=== PATIENT | female | born 1995 | race Caucasian/White ===

== ENCOUNTER 2016-04-30 00:42 | Inpatient (IN) | payer MEDICAID, OTHER ==
--- NOTE | 2016-04-30 01:07 | ED ---
General Adult HPI - General Chief complaint: Psychiatric Symptoms Stated complaint: petition Time Seen by Provider: 04/30/16 00:54 Source: patient, RN notes reviewed Mode of arrival: ambulatory Limitations: no limitations - History of Present Illness Initial comments: Patient is a pleasant 21-year-old female presenting to the emergency department following a suicidal statement. Patient states she was upset and stated that she would rather shoot herself. Patient states she was just agitated and was not actually suicidal. Patient still denies being suicidal at this time. Patient does admit to being somewhat depressed recently no history of self-harm previously. No physical complaints. No alcohol or drug use. No hallucinations. No homicidal thoughts. - Related Data Home Medications Medication Instructions Recorded Confirmed No Known Home Medications [No 04/30/16 04/30/16 Known Home Medications] Allergies Allergy/AdvReac Type Severity Reaction Status Date / Time No Known Allergies Allergy Verified 04/30/16 03:46 Review of Systems ROS Statement: Those systems with pertinent positive or pertinent negative responses have been documented in the HPI. ROS Other: All systems not noted in ROS Statement are negative. Constitutional: Denies: fever Eyes: Denies: eye pain ENT: Denies: throat pain Respiratory: Denies: cough Cardiovascular: Denies: chest pain Endocrine: Denies: fatigue Gastrointestinal: Denies: abdominal pain Genitourinary: Denies: dysuria Musculoskeletal: Denies: back pain Skin: Denies: rash Neurological: Denies: weakness Psychiatric: Reports: depression. Denies: auditory hallucinations, visual hallucinations, homicidal thoughts, suicidal thoughts Past Medical History Past Medical History: Asthma History of Any Multi-Drug Resistant Organisms: None Reported Past Surgical History: Section Past Psychological History: No Psychological Hx Reported Smoking Status: Never smoker Past Alcohol Use History: None Reported Past Drug Use History: None Reported - Past Family History Father Family Medical History: Hypertension, Renal Disease Mother Family Medical History: Cancer Daughter(s) Family Medical History: No Reported History General Exam Limitations: no limitations General appearance: alert, in no apparent distress Head exam: Present: atraumatic Eye exam: Present: normal appearance, PERRL ENT exam: Present: normal oropharynx Neck exam: Present: normal inspection Respiratory exam: Present: normal lung sounds bilaterally Cardiovascular Exam: Present: regular rate, normal rhythm GI/Abdominal exam: Present: soft. Absent: tenderness Extremities exam: Present: normal inspection Neurological exam: Present: alert Psychiatric exam: Present: normal affect, normal mood Skin exam: Absent: rash Course Vital Signs 04/30/16 04/30/16 00:44 03:07 Temperature 99.1 F Pulse Rate 109 H 78 Respiratory 18 18 Rate Blood Pressure 131/83 127/68 O2 Sat by Pulse 98 98 Oximetry Medical Decision Making - Lab Data Result diagrams: 04/30/16 08:36 04/30/16 08:36 Lab Results 04/30/16 04/30/16 Range/Units 01:20 01:20 Urine HCG, Qual Not Detected (Not Detectd) Urine Opiates Screen Not Detected (NotDetected) Ur Oxycodone Screen Not Detected (NotDetected) Urine Methadone Screen Not Detected (NotDetected) Ur Propoxyphene Screen Not Detected (NotDetected) Ur Barbiturates Screen Not Detected (NotDetected) U Tricyclic Antidepress Not Detected (NotDetected) Ur Phencyclidine Scrn Not Detected (NotDetected) Ur Amphetamines Screen Not Detected (NotDetected) U Methamphetamines Scrn Not Detected (NotDetected) U Benzodiazepines Scrn Not Detected (NotDetected) Urine Cocaine Screen Not Detected (NotDetected) U Marijuana (THC) Screen Not Detected (NotDetected) Disposition Clinical Impression: Depression, Suicidal ideation Disposition: TRANSFER TO PSYCH HOSP/UNIT
[2016-04-30 03:43] VITALS: BP 117/72; PULSE 88; RESP 16; TEMP 98.3; BMI 41.3
[2016-04-30] MEDS ORDERED: MAGNESIUM HYDROXIDE 2,400 MG/10 ML CUP PO PRN (04:52)
[2016-04-30] MEDS ORDERED: MAG HYDROX/AL HYDROX/SIMETH 30 ML CUP PO PRN (04:52)
[2016-04-30] MEDS ORDERED: ACETAMINOPHEN TAB 325 MG TAB PO PRN (04:52)
[2016-04-30 09:35] LABS: ALT 40 U/L (9-52); AST 20 U/L (14-36); Alkaline Phosphatase 82 U/L (38-126); Anion Gap 12 mmol/L; Blood Urea Nitrogen 10 mg/dL (7-17); Calcium 10.1 mg/dL (8.4-10.2); Carbon Dioxide 26 mmol/L (22-30); Chloride 106 mmol/L (98-107); Glucose 90 mg/dL (74-99); Non-African American GFR(MDRD) >60 (>60 ml/min/1.73 sqM); Potassium 4.5 mmol/L (3.5-5.1); Sodium 144 mmol/L (137-145); Total Bilirubin 0.7 mg/dL (0.2-1.3); Total Protein 7.5 g/dL (6.3-8.2)
[2016-04-30 09:42] LABS: Basophils % (A) 0 %; CH 26.8; CHCM 32.4; Eosinophils # (A) 0.1 k/uL (0-0.7); Eosinophils % (A) 0 %; HCT 41.2 % (34.0-46.0); HDW 2.57; HGB 13.1 gm/dL (11.4-16.0); Luc % (Auto) 1; Lymphocytes # (A) 1.7 k/uL (1.0-4.8); Lymphocytes % (A) 14 %; MCH 26.4 pg (25.0-35.0); MCHC 31.7 g/dL (31.0-37.0); MCV 83.1 fL (80.0-100.0); Mean Platelet Volume 6.3; Monocytes # (A) 0.4 k/uL (0-1.0); Monocytes % (A) 3 %; Neutrophils # (A) 9.9 k/uL (1.3-7.7); Neutrophils % (A) 82 %; RBC 4.96 m/uL (3.80-5.40); RDW 13.6 % (11.5-15.5); WBC 12.1 k/uL (3.8-10.6); WBC (Perox) 12.16
[2016-04-30 13:01] LABS: Appearance,Urine Cloudy (Clear); Bacteria,Urine Rare /hpf; Bilirubin,Urine Negative (Negative); Glucose,Urine (UA) Negative (Negative); Ketones,Urine Negative (Negative); Leukocyte Esterase,Urine Negative (Negative); Mucus,Urine Few /hpf; Nitrite,Urine Negative (Negative); PH, Urine 5.5 (5.0-8.0); Particle Count 8874; Protein,Urine Trace (Negative); RBC,Urine 1 /hpf (0-5); Specific Gravity,Urine 1.019 (1.001-1.035); Squamous Epithelial Cell,Urine 2 /hpf (0-4); UA Billing (MACRO vs. MICRO) MICRO; Urobilinogen,Urine <2.0 mg/dL (<2.0); WBC,Urine 2 /hpf (0-5)
--- NOTE | 2016-04-30 13:22 | P.HP ---
Psychiatric H&P - . History & Physical: Allergies Allergy/AdvReac Type Severity Reaction Status Date / Time No Known Allergies Allergy Verified 04/30/16 03:46 Vital Signs Temp 98.3 F 04/30/16 03:34 Pulse 88 04/30/16 03:34 Resp 16 04/30/16 03:34 BP 117/72 04/30/16 03:34 Pulse Ox 98 04/30/16 03:07 Intake & Output 04/29/16 04/30/16 04/30/16 18:59 06:59 18:59 Weight 105.715 kg Laboratory Last Values WBC 12.1 k/uL (3.8-10.6) H 04/30/16 08:36 RBC 4.96 m/uL (3.80-5.40) 04/30/16 08:36 Hgb 13.1 gm/dL (11.4-16.0) 04/30/16 08:36 Hct 41.2 % (34.0-46.0) 04/30/16 08:36 MCV 83.1 fL (80.0-100.0) 04/30/16 08:36 MCH 26.4 pg (25.0-35.0) 04/30/16 08:36 MCHC 31.7 g/dL (31.0-37.0) 04/30/16 08:36 RDW 13.6 % (11.5-15.5) 04/30/16 08:36 Plt Count 462 k/uL (150-450) H 04/30/16 08:36 Neutrophils % 82 % 04/30/16 08:36 Lymphocytes % 14 % 04/30/16 08:36 Monocytes % 3 % 04/30/16 08:36 Eosinophils % 0 % 04/30/16 08:36 Basophils % 0 % 04/30/16 08:36 Neutrophils # 9.9 k/uL (1.3-7.7) H 04/30/16 08:36 Lymphocytes # 1.7 k/uL (1.0-4.8) 04/30/16 08:36 Monocytes # 0.4 k/uL (0-1.0) 04/30/16 08:36 Eosinophils # 0.1 k/uL (0-0.7) 04/30/16 08:36 Basophils # 0.0 k/uL (0-0.2) 04/30/16 08:36 Sodium 144 mmol/L (137-145) 04/30/16 08:36 Potassium 4.5 mmol/L (3.5-5.1) 04/30/16 08:36 Chloride 106 mmol/L (98-107) 04/30/16 08:36 Carbon Dioxide 26 mmol/L (22-30) 04/30/16 08:36 Anion Gap 12 mmol/L 04/30/16 08:36 BUN 10 mg/dL (7-17) 04/30/16 08:36 Creatinine 0.80 mg/dL (0.52-1.04) 04/30/16 08:36 Est GFR (MDRD) Af Amer >60 (>60 ml/min/1.73 sqM) 04/30/16 08:36 Est GFR (MDRD) Non-Af >60 (>60 ml/min/1.73 sqM) 04/30/16 08:36 Glucose 90 mg/dL (74-99) 04/30/16 08:36 Calcium 10.1 mg/dL (8.4-10.2) 04/30/16 08:36 Total Bilirubin 0.7 mg/dL (0.2-1.3) 04/30/16 08:36 AST 20 U/L (14-36) 04/30/16 08:36 ALT 40 U/L (9-52) 04/30/16 08:36 Alkaline Phosphatase 82 U/L (38-126) 04/30/16 08:36 Total Protein 7.5 g/dL (6.3-8.2) 04/30/16 08:36 Albumin 4.5 g/dL (3.5-5.0) 04/30/16 08:36 TSH 2.500 mIU/L (0.465-4.680) 04/30/16 08:36 Urine Color Yellow 04/30/16 12:32 Urine Appearance Cloudy (Clear) H 04/30/16 12:32 Urine pH 5.5 (5.0-8.0) 04/30/16 12:32 Ur Specific Martin 1.019 (1.001-1.035) 04/30/16 12:32 Urine Protein Trace (Negative) H 04/30/16 12:32 Urine Glucose (UA) Negative (Negative) 04/30/16 12:32 Urine Ketones Negative (Negative) 04/30/16 12:32 Urine Blood Negative (Negative) 04/30/16 12:32 Urine Nitrate Negative (Negative) 04/30/16 12:32 Urine Bilirubin Negative (Negative) 04/30/16 12:32 Urine Urobilinogen <2.0 mg/dL (<2.0) 04/30/16 12:32 Ur Leukocyte Esterase Negative (Negative) 04/30/16 12:32 Urine RBC 1 /hpf (0-5) 04/30/16 12:32 Urine WBC 2 /hpf (0-5) 04/30/16 12:32 Ur Squamous Epith Cells 2 /hpf (0-4) 04/30/16 12:32 Urine Bacteria Rare /hpf (None) H 04/30/16 12:32 Urine Mucus Few /hpf (None) H 04/30/16 12:32 Urine HCG, Qual Not Detected (Not Detectd) 04/30/16 01:20 Urine Opiates Screen Not Detected (NotDetected) 04/30/16 01:20 Ur Oxycodone Screen Not Detected (NotDetected) 04/30/16 01:20 Urine Methadone Screen Not Detected (NotDetected) 04/30/16 01:20 Ur Propoxyphene Screen Not Detected (NotDetected) 04/30/16 01:20 Ur Barbiturates Screen Not Detected (NotDetected) 04/30/16 01:20 U Tricyclic Antidepress Not Detected (NotDetected) 04/30/16 01:20 Ur Phencyclidine Scrn Not Detected (NotDetected) 04/30/16 01:20 Ur Amphetamines Screen Not Detected (NotDetected) 04/30/16 01:20 U Methamphetamines Scrn Not Detected (NotDetected) 04/30/16 01:20 U Benzodiazepines Scrn Not Detected (NotDetected) 04/30/16 01:20 Urine Cocaine Screen Not Detected (NotDetected) 04/30/16 01:20 U Marijuana (THC) Screen Not Detected (NotDetected) 04/30/16 01:20 04/30/16 13:12 IDENTIFYING DATA: This patient is a 21-year-old single female who was admitted to the mental health unit through the emergency room with the report that she had made suicidal statements. HPI: The patient states that she was involved in a verbal altercation with her fiisi and did make a statement that if he took her daughter she might as well shoot herself with a gun. They do have a handgun in the home but she states she did not attempt to get it and states she had no intent or plan of harming herself. She does not know why she made that statement but felt overwhelmed at the time. She states the relationship with her fiisi has not been going well lately and she had informed him that she was going to stay with her parents and take their daughter. She states that he grabbed their daughter and began packing her belongings as he was going to take her. At that point the patient made those statements. She reports that she has never had a major depressive episode as we carefully describe what that was. She ordinarily is not tearful but has been since last evening. She states that she's been stressed because she works 60-70 hours a week, she attends school at [employer], and provides care for their daughter who is 11 months old. She states she has no suicidal ideation and has never had any homicidal ideation and specifically states she has no thoughts of harming her daughter. She is not endorsing any regular panic attacks but may have had to in the recent past. She does not endorse excessive daily anxiety. She feels that her anxiety is proportional to the stressors noted above. There is no history of hypomanic or manic episodes she reports no symptoms of psychosis. She is future oriented she states that she we 'll continue working going to school and plans to reside with her parents who are her best friends and are willing to help her. She states making the statement of wanting to get the gun was a mistake. She is endorsing no symptoms of obsessive-compulsive disorder, no eating disorder symptoms. PAST PSYCHIATRIC HISTORY: No prior inpatient psychiatric help, no outpatient psychiatric history, no history of suicide attempts, no history of any self- injurious behavior such as cutting. She has never been prescribed a psychotropic medication. PMH: Exercise-induced asthma no regular medication is used ALLERGIES: NO KNOWN DRUG ALLERGIES MEDICATIONS: None CHEMICAL DEPENDENCY HISTORY: No use of alcohol marijuana or other illicit drugs. She has never been placed in residential treatment for chemical dependency reasons. FAMILY PSYCHIATRIC HISTORY: Her sister may have symptoms of mental illness that are unspecified, no history of suicides in the family FAMILY CHEMICAL DEPENDENCY HISTORY: None SOCIAL HISTORY: The patient is 21 years old she is single but has a fianc whom she has been with for 4 years. She has an [id number] daughter with him. They have been residing together. She is originally from [place]. Her parents when she was 1 years old. She characterizes her childhood as being good. She is back in this area for less than one year as she was residing in [place]. She states she preferred living in [place] but her fianc lost his job and impulsively moved them here. She graduated high school and is attending [employer] to become a biomedical engineering technician and hopefully a biomedical analytical scientist. 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 She has 2 brothers and 3 sisters. No history of service. She endorses no legal history she's never been arrested. She reports no history of abuse or traumatic experiences. MENTAL STATUS EXAM: The patient is an overweight female appearing her stated age. She has adequate hygiene grooming she is dressed in her own clothing. Eye contact is appropriate speech is fluent spontaneous nonpressured. She endorses a mood that is stressed but she denies having any suicidal or homicidal ideation intent or plan. Thought process is linear and goal directed there is no evidence of tangential thinking loose associations or flight of ideas. She is endorsing no auditory or visual hallucinations she is endorsing no specific delusions as we reviewed several types. She does not appear hypomanic or manic. There is no psychomotor slowing or agitation. She is briefly tearful in describing relationship difficulties with her fianc. She does quickly reconstitute and demonstrates an appropriate range of affect. There is no verbal or physical aggressiveness. Insight and judgment grossly intact. Cognitively she is alert and oriented to person place and date. She is able to spell world backwards. She is able to recall 3 objects after delay of 3 minutes. STRENGTHS/WEAKNESSES: Strengths: Support from parents, employment, pursuing career goals weaknesses relationship difficulties with fianc feeling stressed because of school work and director child abuse therapy responsibilities INTELLECTUAL FUNCTIONING: Average IMPRESSIONS: [] 1. Adjustment disorder with depressed mood and symptoms of anxiety, rule out major depression rule out generalized anxiety disorder 2. Relationship difficulty with fianc causing psychosocial dysfunction PLAN: Patient has been admitted to the mental health unit voluntarily. We reviewed her symptoms and discussed medication management as an option. At this time it does not appear to be required that we institute a psychotropic medication but she would clearly benefit from individual psychotherapy. Social work has met with the patient to complete a psychosocial assessment and a family meeting has been arranged for tomorrow afternoon. We will monitor the patient for safety and encourage her participation in the milieu. We will request a routine medical consultation. The patient will most likely be appropriate for discharge the mental health unit the next 1-2 days if she has sufficient outpatient support from family.
--- NOTE | 2016-04-30 22:26 | P.CONS ---
History of Present Illness - Reason for Consult Consult date: 04/30/16 medical evaluation - History of Present Illness This is a pleasant 21 year old female patient with no current pcp. She works a [employer] at a [employer], has underlying asthma with exercise induced type. She is healthy otherwise, currently foing thru a relationship problem with her boyfriend whom they have a child together. She was trying to break off the relationship which her boyfriend disagress on the current breakup. He is currenlty emp.oyed. They live in the house together. When she attempted to get this conversation of breaking up across, she plans on getting her child with her , without getting the courts involved and were trying to get an amicable parting of ways. The boyfreind got upset and voiced out that the child cannot go with her. She got emotional over this and said that she would rather , as she cannot part with her daughter. She does not voice any concerns of suicidality, or homicidality. She is level headed with her decisions, no prior hostory of suicide attempt in the past. Review of Systems Constitutional: Reports as per HPI, Denies anorexia, Denies chills, Denies chronic headaches, Denies chronic pain, Denies daytime sleepiness, Denies fatigue, Denies fever, Denies lethargy, Denies malaise, Denies night sweats, Denies poor appetite, Denies sweats, Denies weakness, Denies weight gain, Denies weight loss Ears, nose, mouth and throat: Reports as per HPI, Denies ant. neck pain, Denies bleeding gums, Denies dental pain, Denies dysphagia, Denies epistaxis, Denies headache, Denies hoarseness, Denies mouth pain, Denies nasal congestion, Denies nasal discharge, Denies neck fullness/pressure, Denies neck lump, Denies nose pain, Denies odynophagia, Denies post-nasal drip, Denies sinus pain, Denies sinus pressure, Denies swelling in mouth, Denies swelling in throat, Denies sore throat, Denies vertigo, Denies voice changes Genitourinary: Reports as per HPI, Denies abnormal vaginal bleeding, Denies decreased libido, Denies difficulty conceiving, Denies difficulty voiding, Denies dysmenorrhea, Denies dyspareunia, Denies dysuria, Denies flank pain, Denies genital sores, Denies hematuria, Denies hot flashes, Denies incomplete emptying, Denies kidney stones, Denies menorrhagia, Denies mixed incontinence, Denies nocturia, Denies pelvic pain, Denies post void dribbling, Denies , Denies prolapse symptoms, Denies stress incontinence, Denies urge incontinence , Denies urgency, Denies urinary frequency, Denies vaginal discharge, Denies vaginal dryness, Denies vaginal itching, Denies vaginal odor Menstruation: Reports as per HPI Musculoskeletal: Reports as per HPI, Denies arm numbness/tingling, Denies atrophy, Denies fractures, Denies frequent falls, Denies gait dysfunction, Denies hot joints, Denies leg numbness/tingling, Denies limitation of motion, Denies loss of height, Denies low back pain, Denies morning stiffness, Denies muscle cramps, Denies muscle weakness, Denies myalgias, Denies neck pain, Denies neck stiffness, Denies prior amputations, Denies redness of joints, Denies shooting arm pain, Denies shooting leg pain Integumentary: Reports as per HPI, Denies acne, Denies boils, Denies brittle nails, Denies change in hair/nails, Denies color changes, Denies darkening of skin, Denies depigmentation, Denies dryness, Denies foot/leg ulcers, Denies growths, Denies hirsutism, Denies lesions, Denies onychomycosis, Denies pruritus , Denies rash, Denies sores, Denies striae, Denies unusual bruising, Denies wounds Neurological: Reports as per HPI, Denies aphasia, Denies ataxia, Denies balance difficulties, Denies burning pain, Denies change in mentation, Denies change in smell/taste, Denies change in speech, Denies confusion, Denies convulsions, Denies double vision, Denies gait dysfunction, Denies head injury, Denies headaches, Denies hearing difficulties, Denies lack of coordination, Denies loss of vision, Denies memory loss, Denies migraines, Denies motor disturbance, Denies numbness, Denies paralysis, Denies paresthesias, Denies seizures, Denies sensory deficit, Denies spasticity, Denies syncope, Denies tic, Denies tingling , Denies transient paralysis, Denies tremors, Denies vertigo, Denies weakness, Denies visual changes Psychiatric: Reports as per HPI, Reports sadness/tearfulness Endocrine: Reports as per HPI, Denies cold intolerance, Denies deepening of the voice, Denies excessive sweating, Denies excessive thirst, Denies fatigue, Denies flushing, Denies heat intolerance, Denies high blood sugars, Denies increase in ring/shoe/hat size, Denies low blood sugars, Denies nocturia, Denies palpitations, Denies polydipsia, Denies polyphagia, Denies polyuria, Denies proptosis, Denies recent glucocorticoid use, Denies thyroid mass, Denies weight change Hematologic/Lymphatic: Reports as per HPI, Denies easy bleeding, Denies easy bruising, Denies lymphadenopathy, Denies lymphedema, Denies thrombophilia Allergic/Immunologic: Reports as per HPI, Denies allergic rhinitis, Denies anaphylaxis, Denies angioedema, Denies gluten intolerance, Denies persistent infections, Denies seasonal allergies, Denies urticaria, Denies wheezing Past Medical History Past Medical History: Asthma History of Any Multi-Drug Resistant Organisms: None Reported Past Surgical History: Section Past Anesthesia/Blood Transfusion Reactions: No Reported Reaction Past Psychological History: No Psychological Hx Reported Smoking Status: Never smoker Past Alcohol Use History: None Reported Past Drug Use History: None Reported - Past Family History Father Family Medical History: Hypertension, Renal Disease Mother Family Medical History: Cancer (uterine) Daughter(s) Family Medical History: No Reported History Sister(s) Daughter(s) History Unknown: Yes (depression) Medications and Allergies Home Medications Medication Instructions Recorded Confirmed Type No Known Home Medications [No 04/30/16 04/30/16 History Known Home Medications] Allergies Allergy/AdvReac Type Severity Reaction Status Date / Time No Known Allergies Allergy Verified 04/30/16 03:46 Physical Exam Vitals: Vital Signs Temp Pulse Pulse Resp BP BP Pulse Ox 04/30/16 03:34 98.3 F 88 16 117/72 04/30/16 03:07 78 18 127/68 98 Intake and Output 04/29/16 04/30/16 04/30/16 22:59 06:59 14:59 Other: Weight 105.715 kg - Constitutional General appearance: no average body habitus, cooperative, no disheveled, no mild distress, no morbidly obese, no acute distress, no obese, no severe distress, no thin - EENT Eyes: anicteric sclerae, EOMI, PERRLA, dentition normal ENT: no hard of hearing, hearing grossly normal, NA/AT, normal oropharynx, no other, no pharyngeal erythema, no thrush, no tonsillar exudates, no tonsillar swelling - Neck Neck: normal ROM - Respiratory Respiratory: bilateral: CTA, negative: diminished, dullness, rales, wheezing, other - Cardiovascular Rhythm: regular Abnormal Heart Sounds: no systolic murmur, no diastolic murmur, no rub, no S3 Gallop, no S4 Gallop, no click, no other - Gastrointestinal General gastrointestinal: normal bowel sounds, soft - Integumentary Integumentary: no calor, no cellulitis, no cyanotic, no decreased turgor, no flushed, no jaundiced, normal, normal turgor, no pale, no rash, no ulcer - Neurologic Neurologic: CNII-XII intact - Musculoskeletal Musculoskeletal: gait normal, strength equal bilaterally - Psychiatric Psychiatric: A&O x's 3, appropriate affect, intact judgment & insight Results CBC & Chem 7: 04/30/16 08:36 04/30/16 08:36 Labs: Abnormal Lab Results - Last 24 Hours (Table) 04/30/16 04/30/16 Range/Units 08:36 12:32 WBC 12.1 H (3.8-10.6) k/uL Plt Count 462 H (150-450) k/uL Neutrophils # 9.9 H (1.3-7.7) k/uL Urine Appearance Cloudy H (Clear) Urine Protein Trace H (Negative) Urine Bacteria Rare H (None) /hpf Urine Mucus Few H (None) /hpf Assessment and Plan Plan: 1.adjustment disorder. Patient is currently in the mental health unit, the psychiatric team, will evaluate her psychotropic needs. no physical symptoms currently. no ekg available for review 2. asthm, exercise induced, asymptomati 3. Bmi 41 4. leukocytosis, probably phase reactant. no current symptoms, monitor as out patient
--- NOTE | 2016-05-01 11:47 | P.DS ---
Providers Date of admission: 04/30/16 02:51 Expected date of discharge: 05/01/16 Attending physician: Rajat Adams MD Consults: 04/30/16 04:52 Consult Physician Routine Consulting Provider: Nanda Jane Consult Reason/Comments: H and P with medical follow up Do you want consulting provider notified?: Yes, Notify in am Primary care physician: Stated None - Discharge Diagnosis(es) (1) Adjustment disorder with mixed anxiety and depressed mood Current Visit: Yes Status: Acute Priority: High Hospital Course: Brief summary of admission note: The patient was admitted to the mental health unit through the emergency room with a report that she had made a suicidal statement. She states that she was involved in a verbal altercation with her fianc and did make a statement that if he took her daughter she might as well shoot herself. She states she does not ordinarily make statements like that and she regrets making the statement as she did not have any suicidal intent or plan. The relationship with her fianc has deteriorating and she felt overwhelmed at the time. The argument ensued when she told him she would be staying at her parents and wanted to take their daughter there. For full details please refer to my psychiatric evaluation dictated 04/30/2016. Summary of hospital course: The patient's was admitted to the mental health unit voluntarily. We discussed her presenting symptoms. She did not endorse criteria that were sufficient for a diagnosis of major depressive disorder. She does not require psychotropic medication at this time. She agreed she would benefit from individual psychotherapy. She has attended groups and has demonstrated no agitated behavior. She does have a support meeting scheduled for 1:00 with her father. Her parents visited last evening and she reports that that went well and they remained supportive. She was seen by Dr. Jane for a medical consultation. Mental status exam: The patient is an overweight alert female appearing her stated age. She has good hygiene grooming. Eye contact is good speech is fluent spontaneous nonpressured. Thought process is linear there is no evidence of tangential thinking loose associations or flight of ideas. Mood is described as "better". Affect is euthymic. She denies having any suicidal or homicidal ideation intent or plan. There is no evidence of hypomanic or manic symptoms. She reports no auditory or visual hallucinations or specific delusions and there is no evidence of psychosis. Insight and judgment grossly intact. Cognitively she remains stable and is alert oriented to person place and date. There is no verbal or physical aggressiveness. Impressions 1. Adjustment disorder mixed with anxious and depressed mood, rule out major depressive disorder rule out generalized anxiety disorder 2. Relationship difficulty with fianc, work/school related stress Plan: The patient will participate in a support meeting facilitated by social work at 1 PM. Afterwards we plan to discharge her from the mental health unit as she does not require inpatient psychiatric care. There is no imminent safety risk. Social work will arrange outpatient mental health follow-up as she is agreeable to meeting with an individual therapist. She is encouraged to continue abstaining from any use of alcohol or illicit drugs. Social work will confirm that there are no accessible firearms. The patient's instructed to return to the hospital with any acute safety concerns. She demonstrates future oriented thinking. Patient Condition at Discharge: Stable Plan - Discharge Summary Discharge Medication List No Known Home Medications [No Known Home Medications] 04/30/16 [History] Follow up Appointment(s)/Referral(s): None,Stated [Primary Care Provider] - 1 Week
== END 2016-05-01 14:02 | disposition home or self-care (01) | DRG 882 ==
LOC: EC 00:42 → 3MHU 02:51
PROVIDERS: ADMIT Psychiatry & Neurology Psychiatry; ATTEND Psychiatry & Neurology Psychiatry
DX: F43.23 Adjustment disorder with mixed anxiety and depressed mood (principal); R45.851 Suicidal ideations; E66.3 Overweight; J45.990 Exercise induced bronchospasm; Z68.41 Body mass index [BMI] 40.0-44.9, adult; Z82.49 Family history of ischemic heart disease and other diseases of the circulatory system
CPT/HCPCS: 80053; 80306; 81001; 81025; 82075; 84443; 85025; 93005; 99285

== ENCOUNTER → 2016-12-31 | Outpatient (CLI) | payer OTHER ==
--- NOTE | 2016-12-31 21:54 | MR ---
EXAMINATION TYPE: MR brain wo/w con DATE OF EXAM: 12/31/2016 COMPARISON: NONE HISTORY: Headaches, hallucinations TECHNIQUE: Multiplanar, multisequence images of the brain and brainstem is performed without and with IV contras t, utilizing 10 mL intravenous Gadavist . FINDINGS: Diffusion weighted images demonstrate no evidence of a recent infarct or other diffusion ab normality. There is no extra-axial fluid collection or significant white matter signal abnormality. The ventricular system and cisternal spaces are normal in size and appearance. The brain volume is age appropriate. Midline structures demonstrate normal morphology. The craniocervical junction appears within normal limits. Post contrast images demonstrate no abnormal enhancement. The dural venous sinuses appear pa tent. Scant amount of mucosal thickening is seen within the right maxillary and ethmoid sinuses. Azul ining paranasal sinuses and mastoid air cells are well aerated. Small nonenhancing T2 hyperintense an d T1 hypointense. Fissural cyst is seen as there is low signal on FLAIR sequences and this is nonenha ncing within the right parietal region. IMPRESSION: Minimal paranasal sinus mucosal thickening, otherwise unremarkable MRI with no abnormal p ostcontrast enhancement. No intracranial mass.
== END | disposition home or self-care (01) ==
LOC: RADMRIMAIN 08:42
PROVIDERS: ATTEND Family Medicine
DX: R44.3 Hallucinations, unspecified (principal)
CPT/HCPCS: 70553; A9581